=== PATIENT | female | born 2000 | race Caucasian/White ===

== ENCOUNTER 2023-12-19 23:28 | Emergency (ER) | payer MEDICAID ==
[~2023-12-19] VITALS: Ht 157.5 cm; Wt 55.0 kg
[2023-12-19 23:37] VITALS: BP 120/61; PULSE 104; RESP 19; TEMP 97.7; O2SAT 98
== END 2023-12-20 00:47 | disposition home or self-care (01) ==
LOC: ER 23:42
DX: M54.9 Dorsalgia, unspecified (principal); Z53.21 Procedure and treatment not carried out due to patient leaving prior to being seen by health care provider